=== PATIENT | female | born 1995 | race Two or more races ===

== ENCOUNTER 2023-02-16 17:23 | Emergency (ER) | payer OTHER ==
[~2023-02-16] VITALS: Ht 162.6 cm; Wt 49.9 kg
[2023-02-16 18:58] LABS: HEMATOCRIT 42.7 % (36.0-45.00); HEMOGLOBIN 14.8 g/dL (12.0-15.00); MEAN CELL VOLUME 89.6 fL (80.00-100.00); MEAN CORPUSCULAR HGB CONC 34.6 g/dl (32.0-36.0); PLATELET COUNT 159 K/uL (150-450); RED BLOOD COUNT 4.77 M/uL (4.00-6.00); RED CELL DISTRIBUTION WIDTH 12.9 % (11.5-14.5)
[2023-02-16 19:18] LABS: ALKALINE PHOSPHATASE 47 U/L (50-136); ALT/SGPT 18 U/L (12-78); ANION GAP 8 (10.0-20.0); AST/SGOT 6 U/L (15-37); BILIRUBIN TOTAL 1.32 mg/dL (0.3-1.2); BLOOD UREA NITROGEN 18 mg/dL (7-18); BUN CREA RATIO 21 (7.0-25.0); CALCIUM 8.8 mg/dL (8.5-10.1); CARBON DIOXIDE 28 mEq/L (21-32); CHLORIDE 107 mmol/L (98-107); CREATININE SERUM 0.85 mg/dL (0.55-1.02); GFR 79.07; GLOBULINA 3.4 G/DL (2.4-3.5); GLUCOSE FASTING 95 mg/dL (65-100); LIPASE 19 U/L (13-75); OSMOLALITY SERUM 279 MOSM/KG (275-295); POTASSIUM 3.89 mEq/L (3.5-5.1); SODIUM 139 mmol/L (136-145); TOTAL PROTEIN 7.4 gm/dL (6.4-8.2)
[2023-02-16 19:24] LABS: HCG QUANTITATIVE < 1 mUI/mL (1-3)
[2023-02-16 20:31] LABS: URINE APPEARANCE Cloudy; URINE BILIRRUBIN Negative (NEGATIVE); URINE BLOOD Small; URINE COLOR Yellow; URINE GLUCOSE Negative (NEGATIVE); URINE LEUKOCYTE Trace; URINE NITRATE Negative; URINE PROTEIN Trace (NEGATIVE)
[2023-02-16 20:32] LABS: URINE EPITHELIAL CELLS 36.7 uL (0.0-38.8); URINE WBC 46.3 uL (0.0-23.2)
[2023-02-16] MEDS ORDERED: ONDANSETRON HCL4 MG PO (22:04)
[2023-02-16] MEDS ORDERED: PEPCID AC20 MG PO (22:04)
[2023-02-16] MEDS ORDERED: DUI500 PO (22:04)
== END 2023-02-16 23:00 ==
LOC: ER 17:23
PROVIDERS: Nurse Practitioner Family
DX: R11.10 Vomiting, unspecified (principal); Z91.040 Latex allergy status; N39.0 Urinary tract infection, site not specified; E86.0 Dehydration; Z20.822 Contact with and (suspected) exposure to COVID-19
CPT/HCPCS: 36415; 76830; 96365; 99284; J1885; J2405; J3490; J7050